=== PATIENT | female | born 1945 | race Caucasian/White ===

== ENCOUNTER 2017-12-30 07:36 | Day surgery (SDC) | payer OTHER ==
--- NOTE | 2017-09-30 14:59 | PAT Medication Instructions ---
Service Date Sep 30, 2017. Current Home Medication List Acetaminophen (Tylenol), 325 MG PO DAILY PRN for Pain or Fever Amitriptyline Hcl (Elavil), 100 MG PO QPM Aspirin (Aspirin Ec), 81 MG PO QAM Bisacodyl (Dulcolax), 1 SUPP ID DAILY PRN for Constipation Buspirone Hcl (Buspar), 1 TAB PO BID Cyclobenzaprine Hcl (Flexeril), 1 TAB PO BID Duloxetine HCl (Cymbalta), 1 CAP PO DAILY Duloxetine Hcl (Cymbalta), 60 MG PO QA Estradiol (Estradiol), 1 TAB PO QAM Ferrous Sulfate (Kp Ferrous Sulfate), 1 TAB PO BID Levothyroxine Sodium (Synthroid), 1 TAB PO QAM Loratadine (Claritin), 10 MG PO DAILY PRN for Seasonal Allergies Magnesium Hydroxide (Milk of Magnesia), 1 DOSE PO DAILY PRN for Constipation Meloxicam (Mobic), 7.5 MG PO BID Metformin Hcl (Glucophage), 500 MG PO QAM Modafinil (Provigil), 100 MG PO QAM Morphine Sulfate (Jenae Ext Rel), 60 MG PO Q12 Multivitamins/Minerals (Mvi With Minerals), 1 TAB PO QD@1200 Nicotine (Nicotine), 1 PATCH TOP QAM Oxycodone/Acetaminophen 5MG/325MG (Percocet 5MG/325MG), 1 TABLET PO Q4H PRN for Pain Pantoprazole (Protonix), 40 MG PO BID Probiotic Product (Probiotic Daily), 1 CAP PO BID Quetiapine Fumarate (Quetiapine Fumarate), 37.5 MG PO BID Ranitidine Hcl (Zantac), 1 TAB PO BID Sodium Phosphates (Fleet Enema Six Pack), 1 DOSE RE DAILY PRN for Constipation Torsemide (Demadex), 100 MG PO QAM Trifluoperazine Hcl (Stelazine), 1 MG PO QID [Robitussin Dm ], 1 DOSE PO QD PRN for Cough Medication Instructions For Your Scheduled Surgery - Continue as directed: Nicotine (Nicotine), 1 PATCH TOP QAM - Hold the following medications 48 hours prior to surgery: Metformin Hcl (Glucophage), 500 MG PO QAM - Hold the following medications the morning of surgery: [Robitussin Dm ], 1 DOSE PO QD PRN for Cough Bisacodyl (Dulcolax), 1 SUPP ID DAILY PRN for Constipation Torsemide (Demadex), 100 MG PO QAM Magnesium Hydroxide (Milk of Magnesia), 1 DOSE PO DAILY PRN for Constipation Loratadine (Claritin), 10 MG PO DAILY PRN for Seasonal Allergies Probiotic Product (Probiotic Daily), 1 CAP PO BID Modafinil (Provigil), 100 MG PO QAM Multivitamins/Minerals (Mvi With Minerals), 1 TAB PO QD@1200 Sodium Phosphates (Fleet Enema Six Pack), 1 DOSE RE DAILY PRN for Constipation Cyclobenzaprine Hcl (Flexeril), 1 TAB PO BID Ferrous Sulfate (Kp Ferrous Sulfate), 1 TAB PO BID Meloxicam (Mobic), 7.5 MG PO BID (otherwise okay to continue per surgeon) - Take the following medications the morning of surgery with a sip of water OTHERWISE NOTHING TO EAT OR DRINK AFTER MIDNIGHT: Acetaminophen (Tylenol), 325 MG PO DAILY PRN for Pain or Fever (may take if needed up to 4 hours prior to surgery) Morphine Sulfate (Jenae Ext Rel), 60 MG PO Q12h (may take if needed up to 4 hours prior to surgery) Oxycodone/Acetaminophen 5MG/325MG (Percocet 5MG/325MG), 1 TABLET PO Q4H PRN for Pain (may take if needed up to 4 hours prior to surgery) Duloxetine Hcl (Cymbalta), 60 MG PO QAM Buspirone Hcl (Buspar), 1 TAB PO BID Quetiapine Fumarate (Quetiapine Fumarate), 37.5 MG PO BID Ranitidine Hcl (Zantac), 1 TAB PO BID Trifluoperazine Hcl (Stelazine), 1 MG PO QID Pantoprazole (Protonix), 40 MG PO BID Estradiol (Estradiol), 1 TAB PO QAM Levothyroxine Sodium (Synthroid), 1 TAB PO QAM Aspirin (Aspirin Ec), 81 MG PO QAM (okay to continue per surgeon) - Take the following medications as scheduled the night before surgery: Acetaminophen (Tylenol), 325 MG PO DAILY PRN for Pain or Fever Morphine Sulfate (Jenea Ext Rel), 60 MG PO Q12h Buspirone Hcl (Buspar), 1 TAB PO BID [Robitussin Dm ], 1 DOSE PO QD PRN for Cough Bisacodyl (Dulcolax), 1 SUPP ID DAILY PRN for Constipation Quetiapine Fumarate (Quetiapine Fumarate), 37.5 MG PO BID Ranitidine Hcl (Zantac), 1 TAB PO BID Trifluoperazine Hcl (Stelazine), 1 MG PO QID Magnesium Hydroxide (Milk of Magnesia), 1 DOSE PO DAILY PRN for Constipation Probiotic Product (Probiotic Daily), 1 CAP PO BID Sodium Phosphates (Fleet Enema Six Pack), 1 DOSE RE DAILY PRN for Constipation Cyclobenzaprine Hcl (Flexeril), 1 TAB PO BID Ferrous Sulfate (Kp Ferrous Sulfate), 1 TAB PO BID Pantoprazole (Protonix), 40 MG PO BID Amitriptyline Hcl (Elavil), 100 MG PO QPM Meloxicam (Mobic), 7.5 MG PO BID If you have any questions please call us at [phone] or [phone] or [phone]
--- NOTE | 2017-09-30 15:55 | DIAGNOSTIC IMAGING REPORT ---
CHEST PREADMISSION(PA/LAT) CLINICAL HISTORY: Preoperative evaluation. COMPARISON STUDY: Chest radiograph June 05, 2010. FINDINGS: Lung volumes are normal. No pneumothorax or pleural effusion is present. Mild cardiomegaly is noted without evidence of pulmonary edema. Mild bibasilar opacities favor atelectasis. There is no consolidation to suggest pneumonia. Right shoulder arthroplasty is noted. There is apparent malalignment at the glenohumeral articulation with possible displacement of the glenoid component. IMPRESSION: 1. No acute cardiopulmonary findings. 2. Mild cardiomegaly without evidence of pulmonary edema. 3. Apparent malalignment of the right glenohumeral joint status post right shoulder arthroplasty. Right shoulder radiographs could be obtained as indicated. Electronically signed by: Benton Henriquez M.D. 09/30/2017 3:54 PM Dictated Date/Time: 09/30/2017 3:51 PM
[2017-09-30 16:21] LABS: BASO % 0.5 %; BASO ABS # 0.04 K/uL (0-0.2); EOS % 4.8 %; EOS ABS # 0.35 K/uL (0-0.5); HEMATOCRIT 32.4 % (37-47); HEMOGLOBIN 9.5 g/dL (12.0-16.0); IG# 0.05 K/uL (0.00-0.02); LYMPH % 19.8 %; LYMPH ABS # 1.44 K/uL (1.2-3.4); MEAN CELL VOLUME 86.9 fL (80-100); MEAN CORPUSCULAR HEMOGLOBIN 25.5 pg (25-34); MEAN CORPUSCULAR HGB CONC 29.3 g/dl (32-36); MONO % 10.7 %; MONO ABS # 0.78 K/uL (0.11-0.59); NEUT % 63.5 %; NEUT ABS # 4.62 K/uL (1.4-6.5); PLATELET COUNT 306 K/uL (130-400); RED CELL DISTRIBUTION WIDTH CV 17.7 % (11.5-14.5); RED CELL DISTRIBUTION WIDTH SD 56.7 fL (36.4-46.3); WHITE BLOOD COUNT 7.28 K/uL (4.8-10.8)
[2017-09-30 16:32] LABS: INR 1.1 (0.9-1.1); PTT PATIENT 31.8 SECONDS (21.0-31.0)
[2017-09-30 16:39] LABS: BLOOD UREA NITROGEN 34 mg/dl (7-18); CALCIUM 8.1 mg/dl (8.5-10.1); CARBON DIOXIDE 32 mmol/L (21-32); CREATININE 1.21 mg/dl (0.60-1.20); GLUCOSE 105 mg/dl (70-99); POTASSIUM 4.2 mmol/L (3.5-5.1); SODIUM 140 mmol/L (136-145)
[2017-12-02 07:18] VITALS: BMI 28.0; BMI 29.0
--- NOTE | 2017-12-03 11:18 | PAT Medication Instructions ---
Service Date Dec 03, 2017. Current Home Medication List Acetaminophen (Tylenol), 650 MG PO Q4H PRN for Pain or Fever Albuterol Sulf (Proventil 0.083% 2.5MG/3ML), 2.5 MG INH Q4H PRN for COUGH/ WHEEZING Amitriptyline Hcl (Elavil), 100 MG PO HS Aspirin (Aspirin Ec), 324 MG PO QAM Bisacodyl (Dulcolax), 1 SUPP [place] DAILY PRN for Constipation Buspirone Hcl (Buspar), 15 MG PO BID Cyclobenzaprine Hcl (Flexeril), 10 MG PO BID Duloxetine Hcl (Cymbalta), 60 MG PO QAM Estradiol (Estradiol), 0.5 MG PO QAM Ferrous Sulfate (Kp Ferrous Sulfate), 1 TAB PO BID Gabapentin (Neurontin), 100 MG PO TID Iron Combinations (Iron Complex), 1 CAP PO HS Levothyroxine Sodium (Synthroid), 25 MCG PO QAM Loratadine (Claritin), 10 MG PO QAM Magnesium Hydroxide (Milk of Magnesia), 1 DOSE PO DAILY PRN for Constipation Metformin Hcl (Glucophage), 500 MG PO QAM Modafinil (Provigil), 100 MG PO QAM Morphine Sulfate (Jenae), 60 MG PO Q12H Multivitamins/Minerals (Mvi With Minerals), 1 TAB PO QD@1200 Nicotine (Nicotine), 1 PATCH TOP QAM Oxycodone/Acetaminophen 5MG/325MG (Percocet 5MG/325MG), 1 TABLET PO Q4H PRN for Pain Oxycodone/Acetaminophen 5MG/325MG (Percocet 5MG/325MG), 2 TABLETS PO Q4H PRN for Pain Pantoprazole (Protonix), 40 MG PO BID Prednisone (Prednisone), 40 MG PO Probiotic Product (Probiotic Daily), 1 CAP PO BID Quetiapine Fumarate (Quetiapine Fumarate), 37.5 MG PO BID Ranitidine Hcl (Zantac), 150 MG PO BID Sodium Phosphates (Fleet Enema Six Pack), 1 DOSE RE DAILY PRN for Constipation Torsemide (Demadex), 60 MG PO QAM Trifluoperazine Hcl (Stelazine), 1 MG PO QID [Robitussin Dm ], 1 DOSE PO QD PRN for Cough Medication Instructions For Your Scheduled Surgery - Per surgeon's instructions: Aspirin (Aspirin Ec), 324 MG PO QAM Estradiol (Estradiol), 0.5 MG PO QAM - Continue as directed: Prednisone (Prednisone), 40 MG PO Nicotine (Nicotine), 1 PATCH TOP QAM - Hold the following medications 48 hours prior to surgery: Metformin Hcl (Glucophage), 500 MG PO QAM - Hold the following medications the morning of surgery: Probiotic Product (Probiotic Daily), 1 CAP PO BID Ferrous Sulfate (Kp Ferrous Sulfate), 1 TAB PO BID Loratadine (Claritin), 10 MG PO QAM Torsemide (Demadex), 60 MG PO QAM Magnesium Hydroxide (Milk of Magnesia), 1 DOSE PO DAILY PRN for Constipation [Robitussin Dm ], 1 DOSE PO QD PRN for Cough Modafinil (Provigil), 100 MG PO QAM Sodium Phosphates (Fleet Enema Six Pack), 1 DOSE RE DAILY PRN for Constipation Bisacodyl (Dulcolax), 1 SUPP [place] DAILY PRN for Constipation Multivitamins/Minerals (Mvi With Minerals), 1 TAB PO QD@1200 - Take the following medications the morning of surgery with a sip of water OTHERWISE NOTHING TO EAT OR DRINK AFTER MIDNIGHT: Oxycodone/Acetaminophen 5MG/325MG (Percocet 5MG/325MG), 1 TABLET PO Q4H PRN for Pain (may take if needed up to 4 hours prior to surgery) Oxycodone/Acetaminophen 5MG/325MG (Percocet 5MG/325MG), 2 TABLETS PO Q4H PRN for Pain (may take if needed up to 4 hours prior to surgery) Pantoprazole (Protonix), 40 MG PO BID Buspirone Hcl (Buspar), 15 MG PO BID Cyclobenzaprine Hcl (Flexeril), 10 MG PO BID Acetaminophen (Tylenol), 650 MG PO Q4H PRN for Pain or Fever (may take if needed up to 4 hours prior to surgery) Albuterol Sulf (Proventil 0.083% 2.5MG/3ML), 2.5 MG INH Q4H PRN for COUGH/ WHEEZING Gabapentin (Neurontin), 100 MG PO TID Trifluoperazine Hcl (Stelazine), 1 MG PO QID Probiotic Product (Probiotic Daily), 1 CAP PO BID Ferrous Sulfate (Kp Ferrous Sulfate), 1 TAB PO BID Duloxetine Hcl (Cymbalta), 60 MG PO QAM Levothyroxine Sodium (Synthroid), 25 MCG PO QAM Ranitidine Hcl (Zantac), 150 MG PO BID Morphine Sulfate (Jenae), 60 MG PO Q12H (may take if needed up to 4 hours prior to surgery) Quetiapine Fumarate (Quetiapine Fumarate), 37.5 MG PO BID - Take the following medications as scheduled the night before surgery: Oxycodone/Acetaminophen 5MG/325MG (Percocet 5MG/325MG), 1 TABLET PO Q4H PRN for Pain Oxycodone/Acetaminophen 5MG/325MG (Percocet 5MG/325MG), 2 TABLETS PO Q4H PRN for Pain Pantoprazole (Protonix), 40 MG PO BID Buspirone Hcl (Buspar), 15 MG PO BID Cyclobenzaprine Hcl (Flexeril), 10 MG PO BID Acetaminophen (Tylenol), 650 MG PO Q4H PRN for Pain or Fever Albuterol Sulf (Proventil 0.083% 2.5MG/3ML), 2.5 MG INH Q4H PRN for COUGH/ WHEEZING Iron Combinations (Iron Complex), 1 CAP PO HS Amitriptyline Hcl (Elavil), 100 MG PO HS Gabapentin (Neurontin), 100 MG PO TID Trifluoperazine Hcl (Stelazine), 1 MG PO QID Ranitidine Hcl (Zantac), 150 MG PO BID Morphine Sulfate (Jenae), 60 MG PO Q12H Quetiapine Fumarate (Quetiapine Fumarate), 37.5 MG PO BID If you have any questions please call us at [phone] or [phone] or [phone]
--- NOTE | 2017-12-09 15:16 | HISTORY & PHYSICAL EXAMINATION ---
DATE OF ADMISSION: 12/30/2017 HISTORY OF PRESENT ILLNESS: Wendy is scheduled for surgery on 12/30/2017. I saw her in the office today 12/09/2017 for history and physical examination. She notes continued pain with numbness in the right hand, all 5 digits. She also notes dysfunction of the thumb with difficulty extending the thumb. MEDICATIONS: Include buspirone, Cymbalta, Elavil, Seroquel, trifluoperazine, Dulcolax, Fleet enema, metformin, levothyroxine, Percocet, pantoprazole, Provigil, Robitussin, Zantac, torsemide, morphine sulfate 30 mg two tablets every 4 hours. PHYSICAL EXAMINATION HEART: Regular rate and rhythm. LUNGS: Clear to auscultation bilaterally. EXTREMITIES: Right elbow: No subluxation of her ulnar nerve, supple motion of the elbow. Negative Tinel's over the ulnar nerve. Right hand exhibits intrinsic atrophy. She has no palpable EPL tone and she has lack of extension actively of the thumb. She has positive Tinel's over the right carpal tunnel. Positive Phalen's test. Review of nerve studies shows bilateral carpal tunnel syndrome as well as cubital tunnel syndrome. ASSESSMENT: A 72-year-old white female with: 1. Bilateral carpal tunnel syndrome. 2. Bilateral cubital tunnel syndrome. 3. Right extensor pollicis longus rupture. 4. Rheumatoid arthritis. PLAN: At this point, she is most symptomatic with right carpal tunnel and right cubital tunnel syndrome. She has an EPL rupture, but I do not feel that it should be fixed concurrently with carpal and cubital tunnel. We discussed the option of a right carpal tunnel release with right cubital tunnel release. Would hope to limit cubital tunnel release in situ release. The risks and benefits have been discussed including, but not limited to, risk of infection, nerve injury, stiffness, loss of motion, failure to improve, etc. Reasonable outcomes and options of treatment were discussed. An explanation of appropriate alternatives to the procedure that may be advantageous were discussed and their risks and benefits, as well as the risks and benefits of not proceeding with treatment. I offered to answer any additional inquiries concerning the treatment involved. All the patient's questions were answered. The patient is agreeable, understanding of the treatment plan and alternatives, and wishes to proceed with the treatment plan. Her medication will stay on her current regime of morphine sulfate 30 mg once a day and I will not prescribe other further medication. We will have Dr. Aiken fax over medical clearance.
[~2017-12-30] VITALS: Ht 152.4 cm; Wt 65.5 kg
[~2017-12-30 07:36] MED LIST: ACET-1311 PO; ALBINS/ INH; AMT50 PO; ASPI81TA28 PO; BISA10SU38 PR; BUSP15TA70 PO; CLINDAMYCIN 600 MG/54 ML D5W IV SCH; CLR10 PO; CYCL10TA6 PO; DULO60CA44 PO; ESTR0.5T3 PO; FERR1TAB13 PO; GABA-112 PO; GLC/500 PO; IRON1CAP2 PO; LACTATED RINGER'S 1000ML 1,000 ML IV SCH; LEVO25TA PO; MODA100T17 PO; MOMLX PO; MORP1CAP PO; MULT-513 PO; NICO14DI9 TOP; OXYC-57 PO; PANT40TA PO; PRED20TA PO; PROB1CAP41 PO; RANI150T3 PO; ROBITUSSIN DM PO; SODI1ENE RE; SRQ25 PO; TORS1TAB41 PO; TRIF1TAB PO
[2017-12-30] MEDS ORDERED: ROPIVACAINE 0.5% 5 MG/ML 30 ML VIAL ONE (07:40)
[2017-12-30 08:03] VITALS: BP 139/67; PULSE 67; TEMP 36.8; O2SAT 97; Ht 152.4 cm; Wt 65.5 kg
[2017-12-30] MEDS ORDERED: PHENYLEPHRINE 100MCG/ML 5ML SYR ONE (08:13)
[2017-12-30] MEDS ORDERED: PROPOFOL IV EMULSION 10 MG/ML 20 ML VIAL IV ONE (08:13)
[2017-12-30] MEDS ORDERED: LIDOCAINE HCL 2% 2 ML VIAL (20MG/ML) ONE (08:13)
[2017-12-30] MEDS ORDERED: EpHEDrine SULFATE 50MG/5ML SYR ONE (08:13)
[2017-12-30] MEDS ORDERED: MIDAZOLAM HCL 1 MG/ML 2ML VIAL ONE (08:13)
[2017-12-30] MEDS ORDERED: ONDANSETRON INJ 2 MG/ML 2 ML VIAL ONE (08:13)
[2017-12-30] MEDS ORDERED: FENTANYL CITRATE INJ 50 MCG/1 ML 2 ML VIAL ONE (08:14)
[2017-12-30] MEDS ORDERED: FENTANYL CITRATE INJ 50 MCG/1 ML 2 ML VIAL IV PRN (08:30)
[2017-12-30] MEDS ORDERED: ATROPINE SULFATE 0.1 MG/ML 5ML SYR IV PRN (08:30)
[2017-12-30] MEDS ORDERED: EpHEDrine SULFATE INJ 50 MG/ML AMP IV PRN (08:30)
[2017-12-30] MEDS ORDERED: HYDROmorphone INJ 1 MG/ML SYR IV PRN (08:30)
[2017-12-30] MEDS ORDERED: ONDANSETRON INJ 2 MG/ML 2 ML VIAL IV PRN ×2 (08:30→12:00)
[2017-12-30] MEDS ORDERED: VITACAP26 (09:01)
[2017-12-30] MEDS ORDERED: NURSING VERBAL MED ORDER ONE (09:15)
[2017-12-30] MEDS ORDERED: DEXTROSE 5% 1000ML 1,000 ML IV SCH (09:30)
[2017-12-30] MEDS ORDERED: BUPIVACAINE 0.5 % 5 MG/1 ML MPF 30ML VIAL ONE (10:04)
--- NOTE | 2017-12-30 10:06 | History & Physical Bridge Note ---
H&P Re-Evaluation Bridge Note: I have examined the patient, reviewed the History & Physical and in the interval since the performance of the History & Physical I have noted the following changes of clinical significance: No changes noted
--- NOTE | 2017-12-30 11:25 | [facility] Post Operative Brief Note ---
Immediate Operative Summary Operative Date Dec 30, 2017. Pre-Operative Diagnosis Right carpal tunnel and right cubital tunnel syndrome Post-Operative Diagnosis Same preoperative diagnosis Procedure(s) Performed Right Elbow Cubital Tunnel Release Possible Anterior Transposition; Right Wrist Capral Tunnel Release Surgeon Dr. Preston Loading Unit Operator Powder Charging Surgeon(s) none Estimated Blood Loss 3ml Findings Consistent with Post-Op Diagnosis Specimens none per surgeon Anesthesia Type General Complication(s) none Disposition Disposition: Recovery Room / PACU
--- NOTE | 2017-12-30 11:56 | Discharge Instructions ---
Discharge Instructions Date of Service Dec 30, 2017. Admission Reason for Admission: Carpal Tunnel Syndrome Discharge Discharge Diagnosis / Problem: carpal tunnel and cubital tunnel Discharge Goals Goal(s): Decrease discomfort Activity Recommendations Activity Limitations: as noted below (no lifting greater than 5 lbs) Exercise/Sports Limitations: rest today Shower/Bathe: keep incision dry (may get incisions wet in the shower in 3 days) Driving or Machine Use: no driving . Instructions / Follow-Up Instructions / Follow-Up [facility] : Hand /Wrist Instr. ACTIVITY RECOMMENDATIONS: Avoid lifting anything until your first post-operative visit. Keep your hand elevated above the level of your heart at all times. Elbow should be above the level of the heart, and hand kept above the elbow. ~ You may use a sling if necessary. Ice the affected extremity a minimum of 3-4 times a day, 20 minutes each time. SPECIAL CARE INSTRUCTIONS: * Your bandage should be left in place until seen in the office. * Some drainage onto the dressing may occur.~ This is normal. * If the bandage feels excessively tight, you may loosen the elastic bandage.~ Then call the physician's office for further instructions. * You should move your fingers regularly, making a fist and extending them, unless otherwise instructed. SPECIAL PRECAUTIONS: * If you notice increased drainage, fever over 101 degrees F. or severe, unremitting pain, call your physician/office at . * You may have been prescribed pain medication.~ If you experience nausea and/ or skin rash, discontinue this medication and contact our office for an alternative medication. Pain Medication: a. You will be prescribed pain medication upon discharge that should last till your first post-operative appointment. b. You may also take Advil, Ibuprofen or Aleve between medication doses if you do not have any contraindication to taking them. c. You may also take Advil, Ibuprofen, Aleve or Tylenol in place of your pain medication if the pain is tolerable. FOLLOW UP VISIT: If appointment is not already scheduled: Please call [facility] to make a follow-up appointment after your surgery at . Follow up appointment with Dr. Preston or his PA: 10-14 days Follow up appointment with Certified Hand Therapist at [facility]: in 3-5 days remove wrist dressing in 48 hours and apply a bandaid. remove elbow dressing in 5 days and reapply a dry sterile dressing Current Hospital Diet Patient's current hospital diet: Regular Diet Discharge Diet Recommended Diet: Regular Diet Procedures Procedures Performed: Right Elbow Cubital Tunnel Release, Anterior Transposition; Right Wrist Capral Tunnel Release Pending Studies Studies pending at discharge: no Medical Emergencies . Who to Call and When: Medical Emergencies: If at any time you feel your situation is an emergency, please call 911 immediately. . Non-Emergent Contact Non-Emergency issues call your: Primary Care Provider . "Provider Documentation" section prepared by Bobby Luke. . VTE Core Measure Inpt VTE Proph given/why not?: Contraindicated [place] Drug Monitoring Program Search Results: patient reviewed within database (is getting chronic narcotics from PCP. I will not prescribe narcotics)
[2017-12-30] MEDS ORDERED: OXYCODONE/ACETAMINOPHEN 5-325 TAB PO PRN ×2 (12:00)
[2017-12-30] MEDS ORDERED: ACETAMINOPHEN 325 MG TAB PO PRN (12:00)
[2017-12-30] MEDS ORDERED: MoRPHine SULFATE 4 MG/ML 1 ML CARP\\VIAL IV PRN (12:00)
--- NOTE | 2017-12-30 12:11 | Anesthesiology Progress Note ---
Anesthesia Post Op Note Date & Time Dec 30, 2017 at 12:11 Vital Signs Pain Intensity: 3 Vital Signs Past 12 Hours Date Time Temp Pulse Resp B/P (MAP) Pulse Ox O2 Delivery O2 Flow Rate FiO2 12/30/17 11:55 66 17 124/78 99 Oxymask 10 12/30/17 11:45 67 15 138/72 99 Oxymask 10 12/30/17 11:36 36.0 57 14 104/48 100 Oxymask 10 12/30/17 08:03 36.8 67 18 139/67 (91) 97 Room Air Notes Mental Status: alert / awake / arousable, participated in evaluation Pt Amnestic to Procedure: Yes Nausea / Vomiting: adequately controlled Pain: adequately controlled Airway Patency, RR, SpO2: stable & adequate BP & HR: stable & adequate Hydration State: stable & adequate Anesthetic Complications: no major complications apparent
[2017-12-30 12:15] VITALS: BP 117/68; PULSE 68; TEMP 36.4; O2SAT 91
[2017-12-30 12:45] VITALS: BP 125/58; O2SAT 90
[2017-12-30 13:15] VITALS: BP 112/77; PULSE 65; O2SAT 90
--- NOTE | 2017-12-30 21:13 | OPERATIVE REPORT ---
DATE OF OPERATION: 12/30/2017 PREOPERATIVE DIAGNOSIS: Right carpal tunnel syndrome and right cubital tunnel syndrome. POSTOPERATIVE DIAGNOSIS: Right carpal tunnel syndrome and right cubital tunnel syndrome. PROCEDURE: 1. Right cubital tunnel release, in situ. 2. Right carpal tunnel release. SURGEON: Herve Preston MD. INTERNATIONAL TRADE MANAGER: None. ANESTHESIA: General. COMPLICATIONS: None. INDICATIONS: This is a 72-year-old with signs and symptoms of right carpal tunnel syndrome. The patient has a nerve conduction study and clinical exam consistent with carpal tunnel syndrome. The patient presents electively for carpal tunnel release after discussion of risks and benefits. The risks and benefits have been discussed including, but not limited to, risk of infection, nerve injury, stiffness, loss of motion, failure to improve, etc. Reasonable outcomes and options of treatment were discussed. An explanation of appropriate alternatives to the procedure that may be advantageous were discussed and their risks and benefits, as well as the risks and benefits of not proceeding with treatment. I offered to answer any additional inquiries concerning the treatment involved. All the patient's questions were answered. The patient is agreeable, understanding of the treatment plan and alternatives, and wishes to proceed with the treatment plan. FINDINGS: Moderate to severe compression of the median nerve in the carpal tunnel. Moderate to severe compression of the ulnar nerve in the cubital tunnel. No subluxation of the ulnar nerve. OPERATIVE PROCEDURE: The patient was identified. The proper procedure and site was verified. A surgical time out was taken and observed. The patient was given perioperative antibiotics prior to the skin incision. After administration of local anesthetic, the patient's right arm was prepped and draped in the usual sterile fashion. I then made an incision directly in line with the fourth ray just ulnar to the palmaris longus tendon. Dissection was carried down through the skin and subcutaneous tissues. Hemostasis was obtained with bipolar electrocautery. The superficial fascia layer was identified. This was transected with scissors. I then identified the transverse carpal ligament and this was sharply incised just ulnar to the median nerve. This incision was then carried to the proximal level of visualization. I then spread above and below the transverse carpal ligament and a meniscotome was used to complete the transection of the transverse carpal ligament 1 cm proximal to the proximal wrist crease. This was verified as completely released under direct vision. I then completed the release of the transverse carpal ligament distally to the level of the fat stripe and this was also verified as being completely released. The carpal tunnel was inspected. There was no evidence of space occupying lesion in the carpal tunnel. The median nerve was inspected and the motor branch takeoff was noted out of the direct surgical field and free from harm. The wound was copiously irrigated and the incision was closed. The patient's [] cubital tunnel was approached with a longitudinal incision directly over the cubital tunnel approximately 2-3 cm in length. Dissection was carried down through the skin and subcutaneous tissues. Branches of the medial antebrachial cutaneous nerves were identified. These were retracted free. The ulnar nerve was identified just proximal to the medial epicondyle and this was dissected meticulously. The cubital tunnel was then released, releasing Mcgraw ligament and Mcgraw fascia. I released the ulnar nerve into the 2 heads of the FCU tendon and I carried the dissection proximally to the limits of visualization. I placed the elbow through range of motion. There was no evidence of subluxation of the ulnar nerve, so I chose to not anteriorly transpose the nerve. There was visible compression noted in the area of the cubital tunnel. No evidence of anomalous muscle noted. The incision was irrigated. The tourniquet was let down. Hemostasis was obtained with bipolar electrocautery and subcutaneous layer was closed with 4-0 Monocryl. The skin was closed with 4-0 nylon in a running fashion. Steri-Strips were applied. A dry, sterile dressing was applied. The patient was sent to the PACU in stable condition. The hand was warm and well-perfused at the end of the case. I discussed the results of the procedure with the patient and family. I attest to the content of the Intraoperative Record and any orders documented therein. Any exceptions are noted below. I attest to the content of the Intraoperative Record and any orders documented therein. Any exception s are noted below.
== END 2017-12-30 14:10 | disposition home or self-care (01) ==
LOC: C.ACU 07:36
PROVIDERS: ATTEND Orthopaedic Surgery
DX: G56.01 Carpal tunnel syndrome, right upper limb (principal); G56.21 Lesion of ulnar nerve, right upper limb

== ENCOUNTER 2018-04-09 05:11 | Day surgery (SDC) | payer OTHER ==
[2018-02-09 10:15] VITALS: BMI 29.0
--- NOTE | 2018-02-14 16:13 | HISTORY & PHYSICAL EXAMINATION ---
DATE OF ADMISSION: 02/19/2018 Special attention to right thumb tendon rupture. HISTORY OF PRESENT ILLNESS: Wendy was seen in the office at [facility] on 02/03/2018 regarding right thumb surgery. She notes continued extensor lag in the right thumb and has had difficulties with activities of daily living due to droop in her thumb. We recently performed a carpal tunnel and cubital tunnel release. She notes improvements in this and she requests to have her thumb fixed. PAST MEDICAL HISTORY: Includes rheumatoid arthritis, diabetes, and hypothyroidism. MEDICATIONS: Buspirone, Cymbalta, Elavil, Seroquel, Dulcolax, trifluoperazine, Fleets Enema, metformin, levothyroxine, Percocet, pantoprazole, Provigil, Robitussin, Zantac, torsemide, Meloxicam, and morphine sulfate 30 mg two tablets every 4 hours. OBJECTIVE: HEART: Regular rate and rhythm. LUNGS: Clear to auscultation bilaterally. EXTREMITIES: Right thumb exam shows complete extensor lag of the thumb. She has no EPL tone and she has no ability to extend the thumb actively. ASSESSMENT: 1. Right thumb extensor pollicis longus rupture. 2. Status post right carpal tunnel release and cubital tunnel release, doing well. PLAN: We discussed treatment options for her thumb. We discussed the options of EIP to EPL transfer, approximately 8-week recovery process. Physical therapy at 10-14 days. We discussed about general anesthesia versus wide awake anesthesia with patient participation to tension the repair. The risks and benefits have been discussed including, but not limited to, risk of infection, nerve injury, stiffness, loss of motion, failure to improve, etc. Reasonable outcomes and options of treatment were discussed. An explanation of appropriate alternatives to the procedure that may be advantageous were discussed and their risks and benefits, as well as the risks and benefits of not proceeding with treatment. I offered to answer any additional inquiries concerning the treatment involved. All the patient's questions were answered. The patient is agreeable, understanding of the treatment plan and alternatives, and wishes to proceed with the treatment plan. She is agreeable and wishes to proceed. Plan for surgical intervention shortly.
--- NOTE | 2018-04-02 11:14 | HISTORY & PHYSICAL EXAMINATION ---
DATE OF ADMISSION: 04/09/2018 CHIEF COMPLAINT: Right thumb being unable to extend. HISTORY OF PRESENT ILLNESS: The patient is a 72-year-old white female presenting with the inability to extend her right thumb. She notes that it is constantly getting in the way and she would like to have this fixed. She notes no trauma to the area. The tendon ruptured and is unable to extend. PAST MEDICAL HISTORY: History of a uterus abscess, thyroid disease, sleep apnea, rheumatoid arthritis, peptic ulcer disease, GERD, history of DVT, diabetes, depression, COPD, asthma, history of broken jaw, arthritis, acid reflux. PAST SURGICAL HISTORY: Cataract surgery, left ankle arthroscopy, right shoulder arthroscopy, bilateral knee replacements, hysterectomy. CURRENT MEDICATIONS: Advair Diskus, albuterol sulfate, Aldactone, amitriptyline, Antivert Aquacel, Benadryl, benzonatate, bumetanide, buspirone, calcium 600, Claritin, clonazepam, Cymbalta, ferrous sulfate, Klor-Con, levothyroxine, Lidoderm 5% patch, Neurontin, Nizoral, OxyContin 10 mg, Percocet 5 mg/325 mg, Shawna-Colace, Premarin, promethazine, Provigil, trifluoperazine, Voltaren topical gel and Zantac. ALLERGIES: ADHESIVE BANDAGE AND PENICILLIN. REVIEW OF SYSTEMS: CARDIOVASCULAR: She denies any chest pain, palpitations. RESPIRATORY: No shortness of breath or wheezing. CONSTITUTIONAL: She denies any fevers or chills. PHYSICAL EXAMINATION: MUSCULOSKELETAL: Right thumb exam: Complete extensor lag. No evidence of ability to extend the thumb. She is able to extend the index finger. CARDIOVASCULAR: Regular rate and rhythm. LUNGS: Clear bilaterally. DIAGNOSIS: Right thumb extensor pollicis longus rupture. PLAN: The patient will be set up for right thumb EIP to EPL tendon transfer. Surgery benefits and risks were discussed in the office. She would like to proceed with surgery with Dr. Preston at this time. KAREN
--- NOTE | 2018-04-03 12:20 | DIAGNOSTIC IMAGING REPORT ---
CHEST 2 VIEWS ROUTINE CLINICAL HISTORY: Preoperative evaluation. COMPARISON STUDY: Chest radiograph September 30, 2017. FINDINGS: Note is again made of a right shoulder arthroplasty with apparent malalignment at the glenohumeral articulation. Severe osteoarthritis of the left shoulder is noted. There is no pneumothorax or pleural effusion. There is no evidence for pulmonary edema. Mild cardiomegaly is noted. The appearance of the chest is unchanged. Linear opacities suggest atelectasis or scarring. IMPRESSION: 1. No acute cardiopulmonary findings. 2. Stable mild cardiomegaly without evidence for pulmonary edema. Electronically signed by: Benton Henriquez M.D. 04/03/2018 12:18 PM Dictated Date/Time: 04/03/2018 12:17 PM
[2018-04-03 12:27] LABS: BASO % 0.6 %; BASO ABS # 0.04 K/uL (0-0.2); EOS % 4.6 %; EOS ABS # 0.29 K/uL (0-0.5); HEMATOCRIT 37.3 % (37-47); HEMOGLOBIN 11.7 g/dL (12.0-16.0); IG# 0.02 K/uL (0.00-0.02); LYMPH ABS # 1.34 K/uL (1.2-3.4); MEAN CELL VOLUME 87.1 fL (80-100); MEAN CORPUSCULAR HEMOGLOBIN 27.3 pg (25-34); MEAN CORPUSCULAR HGB CONC 31.4 g/dl (32-36); MEAN PLATELET VOLUME 8.2 fL (7.4-10.4); MONO % 7.7 %; MONO ABS # 0.49 K/uL (0.11-0.59); NEUT % 65.8 %; NEUT ABS # 4.19 K/uL (1.4-6.5); PLATELET COUNT 261 K/uL (130-400); RED CELL DISTRIBUTION WIDTH CV 18.4 % (11.5-14.5); RED CELL DISTRIBUTION WIDTH SD 58.7 fL (36.4-46.3); WHITE BLOOD COUNT 6.37 K/uL (4.8-10.8)
[2018-04-03 12:33] LABS: INR 1.1 (0.9-1.1); PTT PATIENT 30.9 SECONDS (21.0-31.0)
[2018-04-06 15:15] VITALS: BMI 25.0
[~2018-04-09] VITALS: Ht 152.4 cm; Wt 59.1 kg
[~2018-04-09 05:11] MED LIST changes: -ALBINS/ INH; +BACITRACIN OINT TOP; +CALC500C70 PO; -CLINDAMYCIN 600 MG/54 ML D5W IV SCH; +FENTANYL CITRATE INJ 50 MCG/1 ML 2 ML VIAL ONE; -FERR1TAB13 PO; +FERR1TAB62 PO; -IRON1CAP2 PO; +LIDOCAINE HCL 2% 2 ML VIAL (20MG/ML) ONE; +MIDAZOLAM HCL 1 MG/ML 2ML VIAL ONE; +MOME0.1O TOP; -NICO14DI9 TOP; +NVLG INJ; +POTA-639 PO; -PRED20TA PO; +PROPOFOL IV EMULSION 10 MG/ML 20 ML VIAL IV ONE; -ROBITUSSIN DM PO
[2018-04-09 05:31] VITALS: BP 181/95; PULSE 64; TEMP 36.9; O2SAT 99; Ht 152.4 cm; Wt 59.1 kg
[2018-04-09] MEDS ORDERED: LACTATED RINGER'S 1000ML 1,000 ML IV SCH (06:00)
[2018-04-09] MEDS ORDERED: FENTANYL CITRATE INJ 50 MCG/1 ML 2 ML VIAL ONE (07:03)
[2018-04-09] MEDS ORDERED: MIDAZOLAM HCL 1 MG/ML 2ML VIAL ONE (07:03)
[2018-04-09] MEDS ORDERED: LIDO 2%/EPINEPHRINE 1:100000 20 ML VIAL ONE (07:07)
[2018-04-09] MEDS ORDERED: LIDOCAINE/EPINEPHRINE 1% 20 ML VIAL ONE (07:08)
[2018-04-09] MEDS ORDERED: LIDOCAINE HCL 2% 2 ML VIAL (20MG/ML) ONE (07:39)
[2018-04-09] MEDS ORDERED: PROPOFOL IV EMULSION 10 MG/ML 20 ML VIAL ONE (07:39)
[2018-04-09] MEDS ORDERED: CEFAZOLIN SOD 1 GM VIAL ONE (07:41)
--- NOTE | 2018-04-09 08:40 | [facility] Post Operative Brief Note ---
Immediate Operative Summary Operative Date April 09, 2018. Pre-Operative Diagnosis Right thumb extensor pollicis longus rupture. Post-Operative Diagnosis Right thumb extensor pollicis longus rupture. Procedure(s) Performed Right thumb extensor indicis proprius to extensor polliois longus tendon repair Surgeon Dr. Herve Preston MD Surveillance Dual Rate Officer Surgeon(s) None Estimated Blood Loss 10ml Findings Consistent with Post-Op Diagnosis Specimens None per surgeon Drains None Anesthesia Type MAC Complication(s) none
--- NOTE | 2018-04-09 08:55 | Discharge Instructions ---
Discharge Instructions Date of Service April 09, 2018. Visit Reason for Visit: Right Thumb Extensor Pollios Longus Tendon Rupture Discharge Discharge Diagnosis / Problem: tendon transfer thumb Discharge Goals Goal(s): Improve function Activity Recommendations Activity Limitations: per Instructions/Follow-up section Lifting Limitations: none, no more than 5 pounds, until after follow-up appointment (no use of right hand) Exercise/Sports Limitations: rest today Shower/Bathe: keep incision dry (keep cast clean and dry) Driving or Machine Use: no dsriving no use of right hand keep cast clean and dry ' Anesthesia . Post Anesthesia Instructions: If you have had General Anesthesia or IV Sedation: * Do not drive today. * Resume driving when surgeon permits. * Do not make important decisions or sign legal documents today. * Call surgeon for: 1. Temperature elevations greater than 101 degrees F. 2. Uncontrollable pain. 3. Excessive bleeding. 4. Persistent nausea and vomiting. 5. Medication intolerance (nausea, vomiting or rash). * For nausea and vomiting use only clear liquids such as: tea, soda, bouillon until nausea subsides, then gradually increase diet as tolerated. * If you have any concerns or questions, call your surgeon's office. If physician is unavailable and it is an emergency, call 911 or go to the nearest emergency room. . Instructions / Follow-Up Instructions / Follow-Up UOC : Hand /Wrist Instr. ACTIVITY RECOMMENDATIONS: Avoid lifting anything until your first post-operative visit. Keep your hand elevated above the level of your heart at all times. Elbow should be above the level of the heart, and hand kept above the elbow. ~ You may use a sling if necessary. Ice the affected extremity a minimum of 3-4 times a day, 20 minutes each time. SPECIAL CARE INSTRUCTIONS: * Your bandage should be left in place until seen in the office. * Some drainage onto the dressing may occur.~ This is normal. * If the bandage feels excessively tight, you may loosen the elastic bandage.~ Then call the physician's office for further instructions. * You should move your fingers regularly, making a fist and extending them, unless otherwise instructed. SPECIAL PRECAUTIONS: * If you notice increased drainage, fever over 101 degrees F. or severe, unremitting pain, call your physician/office at . * You may have been prescribed pain medication.~ If you experience nausea and/ or skin rash, discontinue this medication and contact our office for an alternative medication. Pain Medication: a. You will be prescribed pain medication upon discharge that should last till your first post-operative appointment. b. You may also take Advil, Ibuprofen or Aleve between medication doses if you do not have any contraindication to taking them. c. You may also take Advil, Ibuprofen, Aleve or Tylenol in place of your pain medication if the pain is tolerable. FOLLOW UP VISIT: If appointment is not already scheduled: Please call [facility] [place] to make a follow-up appointment after your surgery at . Follow up appointment with Dr. Preston or his PA: 10-14 days Follow up appointment with Certified Hand Therapist at [facility] [place] 10- 14 days- Lety Zuleta in [place] Diet Recommendations Recommended Home Diet: no limitations Procedures Procedures Performed: Right thumb extensor indicis proprius to extensor polliois longus tendon repair Pending Studies Studies pending at discharge: no Medical Emergencies . Who to Call and When: Medical Emergencies: If at any time you feel your situation is an emergency, please call 911 immediately. . Non-Emergent Contact Non-Emergency issues call your: Primary Care Provider . . "Provider Documentation" section prepared by Bobby Luke. .
[2018-04-09] MEDS ORDERED: OXYCODONE/ACETAMINOPHEN 5-325 TAB PO PRN ×2 (09:00)
[2018-04-09] MEDS ORDERED: ONDANSETRON INJ 2 MG/ML 2 ML VIAL IV PRN ×2 (09:00)
[2018-04-09] MEDS ORDERED: ATROPINE SULFATE 0.1 MG/ML 5ML SYR IV PRN (09:00)
[2018-04-09] MEDS ORDERED: NALOXONE HCL 0.4 MG/1 ML VIAL/CARP IV PRN (09:00)
[2018-04-09] MEDS ORDERED: EpHEDrine SULFATE INJ 50 MG/ML AMP IV PRN (09:00)
[2018-04-09] MEDS ORDERED: FLUMAZENIL 0.1 MG/1 ML 10 ML VIAL IV PRN (09:00)
[2018-04-09] MEDS ORDERED: FENTANYL CITRATE INJ 50 MCG/1 ML 2 ML VIAL IV PRN (09:00)
[2018-04-09] MEDS ORDERED: LABETALOL HCL IV 5 MG/ML 20ML IV PRN (09:00)
--- NOTE | 2018-04-09 09:04 | Anesthesiology Progress Note ---
Anesthesia Post Op Note Date & Time April 09, 2018 at 09:03 Vital Signs Pain Intensity: 0 Vital Signs Past 12 Hours Date Time Temp Pulse Resp B/P (MAP) Pulse Ox O2 Delivery O2 Flow Rate FiO2 04/09/18 05:31 36.9 64 18 181/95 (123 99 Notes Mental Status: alert / awake / arousable, participated in evaluation Pt Amnestic to Procedure: Yes Nausea / Vomiting: adequately controlled Pain: adequately controlled Airway Patency, RR, SpO2: stable & adequate BP & HR: stable & adequate Hydration State: stable & adequate Anesthetic Complications: no major complications apparent
[2018-04-09 09:15] VITALS: BP 130/54; PULSE 71; TEMP 37; O2SAT 100
[2018-04-09 09:45] VITALS: BP 141/52; PULSE 65; TEMP 36.8; O2SAT 100
--- NOTE | 2018-04-09 11:28 | OPERATIVE REPORT ---
DATE OF OPERATION: 04/09/2018 PREOPERATIVE DIAGNOSIS: Right thumb extensor pollicis longus rupture. PROCEDURE: 1. Right thumb extensor indices proprius. 2. Extensor pollicis longus tendon transfer. SURGEON: Herve Preston MD NEON TUBE PUMPER: None. ANESTHESIA: Monitored anesthesia care with subsequent wide awake local anesthesia INDICATIONS: A female who sustained attritional rupture of the right thumb EPL. She presents for EIP, #2 EPL transfer. The risks and benefits have been discussed including, but not limited to, risk of infection, nerve injury, stiffness, loss of motion, failure to improve, etc. Reasonable outcomes and options of treatment were discussed. An explanation of appropriate alternatives to the procedure that may be advantageous were discussed and their risks and benefits, as well as the risks and benefits of not proceeding with treatment. I offered to answer any additional inquiries concerning the treatment involved. All the patient's questions were answered. The patient is agreeable, understanding of the treatment plan and alternatives, and wishes to proceed with the treatment plan. DESCRIPTION OF OPERATION: I injected 20 mL of 1:100,000 lidocaine with epinephrine in the local area in the preoperative holding area to allow for wide awake local anesthesia. The patient given minimal sedation first and was subsequently woken up to allow tensioning of the transfer. I made a curvilinear incision over the EIP tendon extending towards the fourth extensor compartment. Dissection was carried down through the skin and subcutaneous tissues. Dorsal veins were cauterized. The EPL tendon was identified and there was a rupture over the proximal aspect of the first metacarpal. Rupture was complete. This was trimmed back to fresh healthy tissue. I made a second incision over the index MP joint. Dissection was carried down to the skin and subcutaneous tissue. The EIP tendon was identified as the ulnar-most tendon. This was then identified in the proximal incision and the tendon was transected distally and retracted and a pull through proximally to the proximal incision. The tendon stump distally was then sutured to the EDC tendon of the index finger to prevent any propagation with 4-0 Monocryl. The tendon was then weaved with 3 Pulvertaft weaves and multiple stitches of 3-0 [place]. First stitch was placed and the patient actively extended the thumb and the index finger. She had good active extension of the thumb. Three Pulvertaft weaves were subsequently performed and showed an excellent stability of the tendon. Wrist tenodesis did result in good extension of the thumb and passively I could fully flex the thumb. Actively she had good extension. Incisions were irrigated and skin was closed with 4-0 Vicryl Rapide. The patient was placed in a thumb spica splint with a thumb extension. Postoperative plan will be a short arc active range of motion protocol with a forearm based thumb spica splint in extension. I attest to the content of the Intraoperative Record and any orders documented therein. Any exception s are noted below.
== END 2018-04-09 10:05 | disposition home or self-care (01) ==
LOC: C.ACU 05:11
PROVIDERS: ATTEND Orthopaedic Surgery
DX: M66.28 Spontaneous rupture of extensor tendons, other site (principal); M06.9 Rheumatoid arthritis, unspecified; E11.22 Type 2 diabetes mellitus with diabetic chronic kidney disease; N18.9 Chronic kidney disease, unspecified; E03.9 Hypothyroidism, unspecified; K21.9 Gastro-esophageal reflux disease without esophagitis; F32.9 Major depressive disorder, single episode, unspecified; J44.9 Chronic obstructive pulmonary disease, unspecified; G47.30 Sleep apnea, unspecified; Z86.718 Personal history of other venous thrombosis and embolism; Z79.899 Other long term (current) drug therapy; Z79.84 Long term (current) use of oral hypoglycemic drugs